=== PATIENT | female | born 1960 | race Caucasian/White ===

== ENCOUNTER → 2019-02-11 | Outpatient (CLI) | payer BC | LOC: MC.RAD 09:15 | DX: Z12.31 Encounter for screening mammogram for malignant neoplasm of breast (principal) ==

== ENCOUNTER 2021-12-16 07:01 | Outpatient (CLI) | payer BC ==
[~2021-12-16] VITALS: Ht 157.5 cm; Wt 69.0 kg
[2021-12-16 07:49] VITALS: BP 111/75; PULSE 77; TEMP 98.2
[2021-12-16] MEDS ORDERED: KLONOPIN 0.5MG0.5 MG PO (08:13)
[2021-12-16] MEDS ORDERED: ZOLOFT 50MG50 MG PO (08:13)
[2021-12-16] MEDS ORDERED: ATARAX50 MG PO (08:13)
[2021-12-16] MEDS ORDERED: [UNRECOGNIZED DRUG - OTHER] PO (08:15)
[2021-12-16] MEDS ORDERED: BETAINE HCL PO (08:15)
--- NOTE | 2021-12-16 09:15 | NUR ---
IV site wrapped with coban. Pt ambulates from dept with steady gait following med administration and lab draws.
[2021-12-20 23:43] LABS: ADRENOCORTICOTROPIC HORMONE 14 pg/mL (5-27)
== END 2021-12-16 09:20 | disposition home or self-care (01) ==
LOC: EUO 07:01
PROVIDERS: Family Medicine
DX: E27.40 Unspecified adrenocortical insufficiency (principal)
CPT/HCPCS: J0834